=== PATIENT | female | born 1955 | race Caucasian/White ===

== ENCOUNTER 2021-04-08 10:35 | Day surgery (SDC) | payer MEDICARE, MEDICAID ==
[2021-04-08] VITALS (10 sets, daily range): BP systolic 94–124; BP diastolic 50–81
[~2021-04-08] VITALS: Ht 160 cm; Wt 111.3 kg
[2021-04-08] MEDS ORDERED: LORA10TA7 PO (10:36)
[2021-04-08] MEDS ORDERED: METO25TA6 PO (10:36)
[2021-04-08] MEDS ORDERED: ALEN70TA80 PO (10:36)
[2021-04-08] MEDS ORDERED: ATOR40TA72 PO (10:36)
[2021-04-08] MEDS ORDERED: ASPI-1397 PO (10:36)
[2021-04-08] MEDS ORDERED: LISI2.5T14 PO (10:36)
[2021-04-08] MEDS ORDERED: normal saline 1,000 ML IV SCH (10:55)
[2021-04-08] MEDS ORDERED: diphenhydrAMINE 25mg capsule PO PRN (10:55)
[2021-04-08] MEDS ORDERED: LORazepam 0.5 MG tablet PO PRN (10:55)
[2021-04-08] MEDS ORDERED: nitroGLYCERIN 0.4mg SUBLingual tab SL PRN (10:55)
[2021-04-08] MEDS ORDERED: midazolam 1 mg/ML 2ml injection ONE (11:31)
[2021-04-08] MEDS ORDERED: LIDOcaine 1% (10mg/ml)w/preservative injection 20ml MDV ONE (11:32)
[2021-04-08] MEDS ORDERED: fentaNYL/PF 50MCG/1 ML 2ML syringe ONE (11:32)
[2021-04-08] MEDS ORDERED: iohexol 350 MG/ML 50ML vial IV ONE (11:32)
[2021-04-08] MEDS ORDERED: iohexol 350MG/ML 100ml bottle IV ONE (11:32)
[2021-04-08] MEDS ORDERED: proCHLORperazine 10 MG/2 ml inj IV PRN (13:00)
[2021-04-08] MEDS ORDERED: HYDROcodone/acetaminophen 10/325mg tab PO PRN (13:00)
[2021-04-08] MEDS ORDERED: OXAZEpam 15mg capsule PO PRN (13:00)
[2021-04-08] MEDS ORDERED: ondansetron/PF 4mg/2ml inj IV PRN (13:00)
[2021-04-08] MEDS ORDERED: HYDROcodone/acetaminophen 5mg/325mg tablet PO PRN (13:00)
== END 2021-04-08 18:25 | disposition home or self-care (01) ==
LOC: SSTAY O 10:35
PROVIDERS: ATTEND Internal Medicine Cardiovascular Disease
DX: R94.39 Abnormal result of other cardiovascular function study (principal); T82.855A Stenosis of coronary artery stent, initial encounter; I25.10 Atherosclerotic heart disease of native coronary artery without angina pectoris; I25.2 Old myocardial infarction; I10 Essential (primary) hypertension; E78.5 Hyperlipidemia, unspecified; Z96.641 Presence of right artificial hip joint; Z96.652 Presence of left artificial knee joint; Z98.890 Other specified postprocedural states; Z79.899 Other long term (current) drug therapy; Z79.82 Long term (current) use of aspirin; Z87.891 Personal history of nicotine dependence; Y83.8 Other surgical procedures as the cause of abnormal reaction of the patient, or of later complication, without mention of misadventure at the time of the procedure; Y92.89 Other specified places as the place of occurrence of the external cause
CPT/HCPCS: 93458; 99152; C1760; C1769; J1644; J2001; J2250; J3010; J7030; Q0163; Q9967; A4620; A6258